=== PATIENT | male | born 1965 | race Caucasian/White ===

== ENCOUNTER 2020-04-12 12:39 | Inpatient (IN) | payer MEDICARE, OTHER ==
[~2020-04-12] VITALS: Ht 172.7 cm; Wt 93.0 kg
[2020-04-12] MEDS ORDERED: LISINOPRIL20 MG PO (20:03)
[2020-04-12] MEDS ORDERED: LEVOTHYROXINE100 MCG PO (20:04)
[2020-04-12] MEDS ORDERED: BENTYL 10MG CAP10 MG PO (20:05)
[2020-04-12] MEDS ORDERED: FLUOXETINE HCL40 MG PO (20:06)
[2020-04-12] MEDS ORDERED: LEVETIRACETAM750 MG PO (20:06)
[2020-04-12] MEDS ORDERED: BACLOFEN20 MG PO (20:07)
[2020-04-12] MEDS ORDERED: AMLODIPINE BESY10 MG PO (20:07)
[2020-04-12] MEDS ORDERED: GLUCOPHAGE 500500 MG PO (20:08)
[2020-04-12] MEDS ORDERED: OXCARBAZEPINE600 MG PO (20:09)
[2020-04-13 02:42] LABS: HEMOGLOBIN 12.2 gm/dl (14.0-17.5); RED BLOOD COUNT 4.41 M/UL (4.20-5.50); WHITE BLOOD COUNT 6.8 K/UL (4.5-11.0)
[2020-04-13 03:07] LABS: BUN/CREATININE RATIO 16 (0-10)
[2020-04-14 03:39] LABS: HEMOGLOBIN 11.6 gm/dl (14.0-17.5); RED BLOOD COUNT 4.15 M/UL (4.20-5.50); WHITE BLOOD COUNT 5.4 K/UL (4.5-11.0)
[2020-04-14 04:12] LABS: BUN/CREATININE RATIO 19 (0-10)
--- NOTE | 2020-04-15 13:06 | NUR ---
CALLED THE [facility] FOR TRANSPORT FOR THIS PATIENT. ALL PAPERWORK HAS BEEN FAXED OVER TO THEM FOR THEIR RECORDS. SPOKE WITH CAPTAIN RIOS AND GAVE HIM THE SERVICE FOR TRANSPORT REQUEST AND THE PATIENTS HOME ADDRESS. CAPTAIN RIOS STATES SOMEONE WILL BE HERE TO TRANSPORT PATIENT SOON THEY CAN.
== END 2020-04-15 18:10 | disposition home or self-care (01) | DRG 287 ==
LOC: PROG CARE 19:13
PROVIDERS: Internal Medicine; ADMIT Internal Medicine
PROC: B24BZZZ Ultrasonography of Heart with Aorta (ICD-10-PCS; 2020-04-13)
PROC: 4A023N7 Measurement of Cardiac Sampling and Pressure, Left Heart, Percutaneous Approach (ICD-10-PCS; principal; 2020-04-14)
PROC: B2111ZZ Fluoroscopy of Multiple Coronary Arteries using Low Osmolar Contrast (ICD-10-PCS; 2020-04-14)
PROC: 4A033BC Measurement of Arterial Pressure, Coronary, Percutaneous Approach (ICD-10-PCS; 2020-04-14)
PROC: B2151ZZ Fluoroscopy of Left Heart using Low Osmolar Contrast (ICD-10-PCS; 2020-04-14)
PROC: B41D1ZZ Fluoroscopy of Aorta and Bilateral Lower Extremity Arteries using Low Osmolar Contrast (ICD-10-PCS; 2020-04-14)
DX: I51.81 Takotsubo syndrome (principal); E83.42 Hypomagnesemia; E87.6 Hypokalemia; G35 Multiple sclerosis; E03.9 Hypothyroidism, unspecified; E11.9 Type 2 diabetes mellitus without complications; I10 Essential (primary) hypertension; Z79.84 Long term (current) use of oral hypoglycemic drugs; Z79.890 Hormone replacement therapy; Z99.3 Dependence on wheelchair; Z79.899 Other long term (current) drug therapy; Z82.49 Family history of ischemic heart disease and other diseases of the circulatory system
CPT/HCPCS: ECHO; 36415; 80048; 80061; 82550; 82553; 83735; 84132; 84439; 84443; 84484; 85025; 85027; 85610; 93005; 93306; C1760; C1769; J1644; J1650; J2250; J3010; J7040; Q9967